=== PATIENT | female | born 1970 | race Caucasian/White ===

== ENCOUNTER 2021-08-22 18:49 | Emergency (ER) | payer MEDICARE ==
[~2021-08-22] VITALS: Ht 167.6 cm; Wt 80.4 kg
[2021-08-22] MEDS ORDERED: PREDNISONE20 MG PO (19:21)
[2021-08-22] MEDS ORDERED: TRAZODONE HCL50 MG NG (19:22)
[2021-08-22] MEDS ORDERED: SYNTHROID150 MCG PO (19:22)
--- OUTSIDE RECORDS SUMMARY | 2021-08-22 21:21 | XMS ---
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 1.If patient presents in the emergency for non-emergent issues. It may be appropriate for this patient to seek care at an Urgent Care Center instead of the Emergency Room, please offer this alternate plan to the patient and provide list of Urgent Care Clinics. 2. Educate patient regarding the proper use of the Emergency Room.\T\nbsp;Redirect patient to PCP for care that does not require the use of the Emergency Department. 3. The patient reports not having a PCP. Give the patient a list of PCPs or refer the patient to the director case management in the ER to help coordinate services. 4. If the patient presents with any type of substance abuse issues please have the ER refer the patient to substance resources. Contact the director case management in the ER to help with placement. 5. If the patient presents with mental health issues please refer the patient to mental health. Have the patient speak to the director case management in the ER to coordinate services. \T\nbsp; 6. Pain/Opioid Agreement: Please use the [facility] Prescription Monitoring Program for specifics related to pts use of narcotics medications.\T\nbsp;https://secureaccess.[place].gov 7.Additional Information: Please contact your facilitys Case Management department if further intervention is needed in the care of this patient. Additional care guidelines exist for the following facilities: [facility] ( 11/13/2014 ) Lizzie VISIT COUNT (12 MO.) 1 [facility] RAYMON Lopezony Gio TOTAL 27 NOTE: Visits indicate total known visits. ED/UCC VISIT TRACKING (12 MO.) 08/22/2021 18:49 RAYMON Bragg TYPE: Emergency COMPLAINT: - VOMITING 08/15/2021 12:14 Steven CELESTE TYPE: Emergency COMPLAINT: - Abdominal pain_ABD PAIN 07/31/2021 07:[address] [facility] TYPE: Emergency DIAGNOSES: - Addisonian crisis - Abdominal Pain - Lightheaded - Unspecified abdominal pain 07/13/2021 08:[address] [facility] TYPE: Emergency DIAGNOSES: - Emesis - Abdominal Pain - Addisonian crisis - Fatigue - Unspecified abdominal pain - Nausea with vomiting, unspecified - Primary adrenocortical insufficiency 06/28/2021 10:17 [facility] Antonina CELESTE TYPE: Emergency DIAGNOSES: - Hypotension, unspecified - Periumbilical pain - Abdominal Pain 06/26/2021 11[facility] [facility] [facility] DIAGNOSES: - Abdominal Pain - Hypotension, unspecified - Left lower quadrant pain 05/03/2021 16:34 Steven CELESTE TYPE: Emergency COMPLAINT: - Skin Issue_INFECTED INCISION - UNSPECIFIED ABDOMINAL PAIN - OTHER ACUTE POSTPROCEDURAL PAIN DIAGNOSES: 0. Other acute postprocedural pain 1. Cellulitis of abdominal wall 4. Hypothyroidism, unspecified 5. Other chcf (current) drug therapy 6. Personal history of nicotine dependence 04/22/2021 16:[address] [facility] TYPE: Emergency DIAGNOSES: - Unspecified abdominal pain - Other acute postprocedural pain - Emesis - Post-op Problem - Abdominal Pain 04/02/2021 15:[address] [facility] TYPE: Emergency DIAGNOSES: - Abdominal Pain - Arm Pain - Chronic vascular disorders of intestine 04/01/2021 20:[address] [facility] TYPE: Emergency DIAGNOSES: - Dizziness - Blood In Stool - Abdominal Pain - Other fecal abnormalities - Vaginal Bleeding 03/22/2021 17:[address] [facility] TYPE: Emergency DIAGNOSES: - Generalized abdominal pain - Flank Pain - Back Pain 03/13/2021 18:[address] [facility] [place] TYPE: Emergency DIAGNOSES: - Constipation, unspecified - Abdominal Pain - Generalized abdominal pain - Functional dyspepsia 03/12/2021 13:42 Steven Nieves [place] TYPE: Emergency COMPLAINT: - Abdominal pain_POSS GHASSAN CRISIS - GENERALIZED ABDOMINAL PAIN - NAUSEA WITH VOMITING UNSPECIFIED - DIARRHEA UNSPECIFIED DIAGNOSES: 0. Generalized abdominal pain 1. Generalized abdominal pain 5. Other chronic pain 6. Primary adrenocortical insufficiency 7. Hypothyroidism, unspecified 8. Other chcf (current) drug therapy 9. Personal history of nicotine dependence 03/08/2021 18:08 Karyn CELESTE TYPE: Emergency 03/06/2021 09:01 Karyn CELESTE TYPE: Emergency 03/05/2021 15:35 Karyn CELESTE TYPE: Emergency [facility] [place] TYPE: Emergency DIAGNOSES: - Disorder of thyroid, unspecified - Abdominal Pain - Acute kidney failure, unspecified - Generalized abdominal pain 02/26[facility]2021 [facility] [place] TYPE: Emergency DIAGNOSES: - Unspecified abdominal pain - Abdominal Pain 01/26/2021 [facility] [place] TYPE: Emergency DIAGNOSES: - Chronic vascular disorders of intestine - Abdominal Pain - Unspecified abdominal pain 12/27/2020 15:57 Steven CELESTE TYPE: Emergency COMPLAINT: - Dehydration, possible - NAUSEA - UNSPECIFIED ABDOMINAL PAIN - WEAKNESS DIAGNOSES: 0. Unspecified abdominal pain 1. Unspecified abdominal pain 5. Nausea 6. Personal history of nicotine dependence 7. Other chcf (current) drug therapy Plus 7 More Visits INPATIENT VISIT TRACKING (12 MO.) 08/15/2021 12:14 Steven CELESTE TYPE: Medical Surgical COMPLAINT: - Abdominal pain_ABD PAIN 07/13/2021 08:54 [facility] Antonina CELESTE TYPE: Internal Medicine DIAGNOSES: - Disorder of kidney and ureter, unspecified - Abnormal result of other cardiovascular function study - Acute embolism and thrombosis of unspecified vein - Nausea with vomiting, unspecified - Chest pain, unspecified - Other specified abnormalities of plasma proteins - Ventricular premature depolarization - Acute pyelonephritis - Unspecified abdominal pain - Primary adrenocortical insufficiency - Other chest pain - Addisonian crisis - Nicotine dependence, unspecified, uncomplicated 04/11/2021 08:55 [facility] TYPE: Inpatient 03/07/2021 17:50 Karyn Narayanan M.C[facility] TYPE: Inpatient [id number]
[2021-08-22] MEDS ORDERED: ONDANSETRON ODT8 MG PO (21:58)
== END 2021-08-22 22:24 | disposition home or self-care (01) ==
LOC: ED 18:49
DX: K29.00 Acute gastritis without bleeding (principal); E27.1 Primary adrenocortical insufficiency; Z88.5 Allergy status to narcotic agent; Z88.0 Allergy status to penicillin; Z79.52 Long term (current) use of systemic steroids; Z79.899 Other long term (current) drug therapy
CPT/HCPCS: 36415; 80053; 81001; 83690; 85025; 96374; 96375; 96376; 99284-25; A9270; J1170; J2405; J7030